=== PATIENT | female | born 1960 | race Hispanic/Latino ===

== ENCOUNTER 2018-01-29 19:53 | Emergency (ER) | payer OTHER, SELFPAY ==
[2018-01-29 20:51] LABS: Urine Blood 3+ (NEG); Urine Glucose TRACE (NEG); Urine Protein 3+ (NEG)
[2018-01-29] MEDS ORDERED: NITROFURAN MACRO 100 MG CAP PO ONE (20:57)
[2018-01-29] MEDS ORDERED: KETOROLAC 30 MG/ML INJ ONE (20:57)
--- NOTE | 2018-01-29 21:19 | EDPHYS ---
Physician Documentation [facility] Name: Carolin Spangler Age: 57 yrs Sex: Female : 1960 Arrival Date: 01/29/2018 Time: 19:54 Bed 20 Private MD: ED Physician Edin Betancourt HPI: 01/29 21:35 This 57 yrs old Female presents to ER via Ambulatory with complaints of Flank kb Pain, Pain With Urination. 21:35 The patient presents with urinary symptoms, dysuria, frequency. Onset: The kb symptoms/episode began/occurred this morning. Modifying factors: The symptoms are alleviated by nothing, the symptoms are aggravated by urinating. Associated signs and symptoms: Pertinent positives: dysuria, urinary frequency. Severity of symptoms: At their worst the symptoms were moderate, in the emergency department the symptoms are unchanged. The patient has not experienced similar symptoms in the past. The patient has not recently seen a physician. Historical: - Allergies: 19:59 PENICILLINS; la1 - PMHx: 19:59 None; la1 - Immunization history:: Adult Immunizations up to date. - Social history:: Smoking status: Patient/guardian denies using tobacco. ROS: 21:47 Positive for urinary symptoms, flank pain, urinary frequency, burning with urination.kb 21:47 Constitutional: Negative for fever, chills, and weight loss, Cardiovascular: Negative for chest pain, palpitations, and edema, Respiratory: Negative for shortness of breath, cough, wheezing, and pleuritic chest pain, Abdomen/GI: Negative for abdominal pain, nausea, vomiting, diarrhea, and constipation, MS/Extremity: Negative for injury and deformity, Skin: Negative for injury, rash, and discoloration, Neuro: Negative for headache, weakness, numbness, tingling, and seizure. Exam: 21:47 Constitutional: This is a well developed, well nourished patient who is awake, alert, kb and in no acute distress. Head/Face: Normocephalic, atraumatic. Chest/axilla: Normal chest wall appearance and motion. Nontender with no deformity. No lesions are appreciated. Cardiovascular: Regular rate and rhythm with a normal S1 and S2. No gallops, murmurs, or rubs. Normal PMI, no JVD. No pulse deficits. Respiratory: Lungs have equal breath sounds bilaterally, clear to auscultation and percussion. No rales, rhonchi or wheezes noted. No increased work of breathing, no retractions or nasal flaring. Abdomen/GI: Soft, non-tender, with normal bowel sounds. No distension or tympany. No guarding or rebound. No evidence of tenderness throughout. Back: No spinal tenderness. No costovertebral tenderness. Full range of motion. Skin: Warm, dry with normal turgor. Normal color with no rashes, no lesions, and no evidence of cellulitis. MS/ Extremity: Pulses equal, no cyanosis. Neurovascular intact. Full, normal range of motion. Neuro: Awake and alert, GCS 15, oriented to person, place, time, and situation. Cranial nerves II-XII grossly intact. Motor strength 5/5 in all extremities. Sensory grossly intact. Cerebellar exam normal. Normal gait. Vital Signs: 19:59 BP 157 / 86; Pulse 90; Resp 19; Temp 98.5; Pulse Ox 100% on R/A; Weight 71.21 kg; la1 21:17 BP 137 / 90; Pulse 85; Resp 18; Pulse Ox 95% on R/A; ao MDM: 20:15 Patient medically screened. kb 21:18 Data reviewed: vital signs, nurses notes. Data interpreted: Pulse oximetry: on room air kb is 95 %. Interpretation: normal. Counseling: I had a detailed discussion with the patient and/or guardian regarding: the historical points, exam findings, and any diagnostic results supporting the discharge/admit diagnosis, lab results, the need for outpatient follow up, a family practitioner, to return to the emergency department if symptoms worsen or persist or if there are any questions or concerns that arise at home. 01/29 20:31 Order name: Urine Microscopic Only kb 01/29 20:42 Order name: Urine Dipstick--Ancillary (enter results); Complete Time: 20:54 em1 01/29 20:31 Order name: Urine Dipstick-Ancillary (obtain specimen); Complete Time: 20:36 kb 01/29 20:42 Order name: Urine --Ancillary (enter results); Complete Time: 20:54 em1 Administered Medications: 21:05 Drug: TORadol 60 mg Route: IM; Site: left deltoid; ao 21:33 Follow up: Response: No adverse reaction ao 21:05 Drug: Macrobid 100 mg Route: PO; ao 21:34 Follow up: Response: No adverse reaction ao Disposition: 01/30 02:29 Co-signature as Attending Physician, Edin Betancourt MD I agree with the assessment and tw4 plan of care. Disposition: 01/29/18 21:19 Discharged to Home. Impression: Urinary tract infection, site not specified. - Condition is Stable. - Discharge Instructions: Urinary Tract Infection, [id number]. - Prescriptions for Macrobid 100 mg Oral Capsule - take 1 capsule by ORAL route every 12 hours for 10 days; 20 capsule. - Medication Reconciliation Form, Thank You Letter, Antibiotic Education, Prescription Opioid Use form. - Follow up: Emergency Department; When: As needed; Reason: Worsening of condition. Follow up: Private Physician; When: 2 - 3 days; Reason: Recheck today's complaints, Continuance of care, Re-evaluation by your physician. Signatures: Dispatcher [employer] Myah Talley, KALEY-C INVENTORY CONTROL SUPERVISOR-Patrice Strong RN RN la1 Tono Olvera, RN Edin Chacon MD MD tw4
--- NOTE | 2018-01-29 21:19 | ER ---
Nurse's Notes [facility] Name: Carolin Spangler Age: 57 yrs Sex: Female : 1960 Arrival Date: 01/29/2018 Time: 19:54 Bed 20 Private MD: Diagnosis: Urinary tract infection, site not specified Presentation: 01/29 19:58 Presenting complaint: Patient states: left flank pain and burning with urination since la1 yesterday. Transition of care: patient was not received from another setting of care. Onset of symptoms was January 29, 2018. Initial Sepsis Screen: Does the patient meet any 2 criteria? No. Patient's initial sepsis screen is negative. Does the patient have a suspected source of infection? No. Patient's initial sepsis screen is negative. Care prior to arrival: None. 19:58 Method Of Arrival: Ambulatory la1 19:58 Acuity: YENNI 3 la1 Historical: - Allergies: 19:59 PENICILLINS; la1 - PMHx: 19:59 None; la1 - Immunization history:: Adult Immunizations up to date. - Social history:: Smoking status: Patient/guardian denies using tobacco. Screenin:36 Abuse screen: Denies threats or abuse. Denies injuries from another. Nutritional ao screening: No deficits noted. Tuberculosis screening: No symptoms or risk factors identified. Fall Risk None identified. Assessment: 20:32 General: Appears in no apparent distress. comfortable, Behavior is calm, cooperative, ao appropriate for age. Pain: Complains of pain in back Pain does not radiate. Neuro: Level of Consciousness is awake, alert, obeys commands, Oriented to person, place, time, situation, Appropriate for age Moves all extremities. Speech is normal, Facial symmetry appears normal, Pupils are PERRLA. Cardiovascular: Denies chest pain, shortness of breath, Capillary refill < 3 seconds Patient's skin is warm and dry. Respiratory: Airway is patent Respiratory effort is even, unlabored, Respiratory pattern is regular, symmetrical, Breath sounds are clear bilaterally. GI: Abdomen is non-distended. : No signs and/or symptoms were reported regarding the genitourinary system. EENT: No signs and/or symptoms were reported regarding the EENT system. Derm: Skin is pink, warm \T\ dry. Skin temperature is warm. Musculoskeletal: Capillary refill. 21:12 Reassessment: Patient appears in no apparent distress at this time. No changes from ao previously documented assessment. Patient and/or family updated on plan of care and expected duration. Pain level reassessed. Patient is alert, oriented x 3, equal unlabored respirations, skin warm/dry/pink. Vital Signs: 19:59 BP 157 / 86; Pulse 90; Resp 19; Temp 98.5; Pulse Ox 100% on R/A; Weight 71.21 kg; la1 21:17 BP 137 / 90; Pulse 85; Resp 18; Pulse Ox 95% on R/A; ao ED Course: 19:54 Patient arrived in ED. es 19:58 Triage completed. la1 19:59 Arm band placed on right wrist. la1 20:15 [facility]C [facility]. kb 20:15 Edin Betancourt MD is Attending Physician. kb 20:22 Tono Olvera, RN is Primary Nurse. ao 20:39 Patient has correct armband on for positive identification. Pulse ox on. NIBP on. ao 21:32 No provider procedures requiring assistance completed. Patient did not have IV access ao during this emergency room visit. Administered Medications: 21:05 Drug: TORadol 60 mg Route: IM; Site: left deltoid; ao 21:33 Follow up: Response: No adverse reaction ao 21:05 Drug: Macrobid 100 mg Route: PO; ao 21:34 Follow up: Response: No adverse reaction ao Outcome: 21:19 Discharge ordered by MD. kb 21:32 Discharged to home ambulatory. ao 21:32 Condition: stable 21:32 Discharge instructions given to patient, family, Instructed on discharge instructions, follow up and referral plans. Demonstrated understanding of instructions, follow-up care, medications, Prescriptions given X 1. 21:33 Patient left the ED. ao Addendum: 02/01/2018 08:48 Addendum: Culture Results: Positive urine culture. No further action required. Bacteria s s sensitive to prescribed antibiotic. Signatures: Myah Turner FNP-C FNP-Lizett Conti Shelby, RN RN ss Attema, Lee, RN RN la1 Tono Olvera RN RN ao
[2018-01-29 21:43] LABS: Urine Bacteria 20-50 /HPF (<20); Urine RBC TNTC /HPF (NONE SEEN)
[2018-01-29 21:44] LABS: Urine Culture Reflex Order REFLEXED; Urine Mucus NS /HPF (NONE SEEN)
== END 2018-01-29 21:33 | disposition home or self-care (01) ==
LOC: ER 19:53
DX: N39.0 Urinary tract infection, site not specified (principal); Z88.0 Allergy status to penicillin
CPT/HCPCS: 81003; 81015; 81025; 87077; 87086; 87088; 87186; 96372; 99283